=== PATIENT | male | born 1965 | race Caucasian/White ===

== ENCOUNTER 2021-02-11 06:52 | Day surgery (SDC) | payer OTHER ==
[~2021-02-11] VITALS: Ht 172.7 cm; Wt 99.8 kg
[2021-02-11] MEDS ORDERED: MIDAZOLAM 5 MG/5 ML VIAL ONE (08:22)
[2021-02-11] MEDS ORDERED: fentaNYL citrate 0.05 MG/ML VIAL ONE (08:22)
[2021-02-11] MEDS ORDERED: diphenhydrAMINE 50 MG/ML VIAL ONE (08:22)
[2021-02-11] MEDS ORDERED: LIDOCAINE 2% 100 MG/5 ML UJET TP ONE ×2 (08:23→08:45)
[2021-02-11] MEDS ORDERED: MIDAZOLAM 2 MG/2 ML VIAL IVP ONE (08:45)
[2021-02-11] MEDS ORDERED: fentaNYL citrate 0.05 MG/ML VIAL IVP ONE (08:45)
== END 2021-02-11 10:44 | disposition home or self-care (01) ==
LOC: MDS 06:52 → MMU 06:57 → MDS 10:44
PROVIDERS: ATTEND Internal Medicine Gastroenterology
DX: Z12.11 Encounter for screening for malignant neoplasm of colon (principal); I10 Essential (primary) hypertension; Z79.899 Other long term (current) drug therapy; Z20.822 Contact with and (suspected) exposure to COVID-19
CPT/HCPCS: 45378; J2250; J3010; U0003; J1200